=== PATIENT | female | born 1975 | race Caucasian/White ===

== ENCOUNTER 2019-08-29 19:02 | Emergency (ER) | payer MEDICAID, SELFPAY | END 2019-08-29 20:28 | disposition home or self-care (01) | PROVIDERS: Emergency Provider Emergency Medicine; Family Provider Family Medicine; Visit Provider Emergency Medicine | DX: S93.401A Sprain of unspecified ligament of right ankle, initial encounter (principal); X50.1XXA Overexertion from prolonged static or awkward postures, initial encounter; Y92.009 Unspecified place in unspecified non-institutional (private) residence as the place of occurrence of the external cause; J45.909 Unspecified asthma, uncomplicated; Z87.891 Personal history of nicotine dependence; Z88.2 Allergy status to sulfonamides; I10 Essential (primary) hypertension | CPT/HCPCS: 73610; 99283 ==

== ENCOUNTER → 2019-10-20 09:31 | Outpatient (BNVA) | payer MEDICAID, SELFPAY | PROVIDERS: Family Provider Family Medicine; PCP Nurse Practitioner Family; Visit Provider Anesthesiology | DX: G89.29 Other chronic pain (principal); M51.36 Other intervertebral disc degeneration, lumbar region; M54.16 Radiculopathy, lumbar region; M54.12 Radiculopathy, cervical region; M17.11 Unilateral primary osteoarthritis, right knee; Z79.891 Long term (current) use of opiate analgesic | CPT/HCPCS: 99214 ==

== ENCOUNTER → 2020-02-08 10:52 | Outpatient (BNVA) | payer MEDICAID, SELFPAY | PROVIDERS: Family Provider Family Medicine; PCP Nurse Practitioner Family; Visit Provider Anesthesiology | DX: G89.29 Other chronic pain (principal); M51.36 Other intervertebral disc degeneration, lumbar region; M54.16 Radiculopathy, lumbar region; M54.9 Dorsalgia, unspecified; M17.11 Unilateral primary osteoarthritis, right knee; M54.12 Radiculopathy, cervical region; Z79.891 Long term (current) use of opiate analgesic | CPT/HCPCS: 99214 ==

== ENCOUNTER → 2020-04-07 13:26 | Outpatient (BNVA) | payer MEDICAID, SELFPAY | PROVIDERS: Family Provider Family Medicine; PCP Nurse Practitioner Family; Visit Provider Anesthesiology | DX: G89.29 Other chronic pain (principal); M54.12 Radiculopathy, cervical region; M51.36 Other intervertebral disc degeneration, lumbar region; M54.16 Radiculopathy, lumbar region; M54.9 Dorsalgia, unspecified; Z79.891 Long term (current) use of opiate analgesic | CPT/HCPCS: 99214 ==

== ENCOUNTER → 2020-06-09 09:39 | Outpatient (BNVA) | payer MEDICAID, SELFPAY | PROVIDERS: Family Provider Family Medicine; PCP Nurse Practitioner Family; Visit Provider Anesthesiology | DX: G89.29 Other chronic pain (principal); M51.36 Other intervertebral disc degeneration, lumbar region; M54.16 Radiculopathy, lumbar region; M54.12 Radiculopathy, cervical region; M54.9 Dorsalgia, unspecified; Z79.1 Long term (current) use of non-steroidal anti-inflammatories (NSAID); Z79.891 Long term (current) use of opiate analgesic | CPT/HCPCS: 99213; 99214 ==

== ENCOUNTER 2020-06-09 12:17 | Outpatient (CLI) | payer MEDICAID, SELFPAY ==
[2020-06-09 12:57] LABS: Alanine Aminotransferase 18 U/L (0-33); Albumin Level 4.4 g/dL (3.5-5.2); Alkaline Phosphatase 90 IU/L (35-105); Anion Gap 15.5 (5-19); Aspartate Amino Transferase 17 U/L (0-32); Blood Urea Nitrogen 13 mg/dL (6-20); Calcium 9.6 mg/dL (8.5-10.5); Carbon Dioxide 29 mmol/L (22-29); Chloride 97 mmol/L (98-107); Globulin 3.6 g/dL (1.3-4.6); Glomerular Filtration Rate 60.5 mL/min (90-130); Glucose 110 mg/dL (65-115); Osmolality Calculated 287 mOsm/kg (285-295); Potassium 3.5 mmol/L (3.5-5.1); Sodium 138 mmol/L (136-145); Total Bilirubin 0.6 mg/dL (0.15-1.2)
== END 2020-06-09 12:18 | disposition home or self-care (01) ==
LOC: LAB 12:21
PROVIDERS: PCP Nurse Practitioner Family; Visit Provider Anesthesiology
DX: Z79.1 Long term (current) use of non-steroidal anti-inflammatories (NSAID) (principal)
CPT/HCPCS: 36415; 80053

== ENCOUNTER → 2020-08-02 13:22 | Outpatient (BNVA) | payer MEDICAID, SELFPAY | PROVIDERS: PCP Nurse Practitioner Family; Visit Provider Anesthesiology | DX: G89.29 Other chronic pain (principal); M51.36 Other intervertebral disc degeneration, lumbar region; M54.16 Radiculopathy, lumbar region; M54.9 Dorsalgia, unspecified; M54.12 Radiculopathy, cervical region; M17.11 Unilateral primary osteoarthritis, right knee; Z79.891 Long term (current) use of opiate analgesic | CPT/HCPCS: 99214 ==

== ENCOUNTER → 2020-10-06 12:41 | Outpatient (BNVA) | payer MEDICAID, SELFPAY | PROVIDERS: PCP Nurse Practitioner Family; Visit Provider Anesthesiology | DX: G89.29 Other chronic pain (principal); M51.36 Other intervertebral disc degeneration, lumbar region; M54.16 Radiculopathy, lumbar region; M54.9 Dorsalgia, unspecified; M54.2 Cervicalgia; Z79.891 Long term (current) use of opiate analgesic | CPT/HCPCS: 99213 ==

== ENCOUNTER → 2020-12-06 13:09 | Outpatient (BNVA) | payer MEDICAID, SELFPAY | PROVIDERS: PCP Nurse Practitioner Family; Visit Provider Nurse Practitioner | DX: G89.29 Other chronic pain (principal); M51.36 Other intervertebral disc degeneration, lumbar region; M54.16 Radiculopathy, lumbar region; M54.12 Radiculopathy, cervical region; M54.9 Dorsalgia, unspecified; M17.11 Unilateral primary osteoarthritis, right knee; M25.511 Pain in right shoulder; Z79.891 Long term (current) use of opiate analgesic | CPT/HCPCS: 99213 ==

== ENCOUNTER → 2021-02-06 12:42 | Outpatient (BNVA) | payer MEDICAID, SELFPAY | PROVIDERS: PCP Internal Medicine; Visit Provider Nurse Practitioner | DX: G89.29 Other chronic pain (principal); M51.36 Other intervertebral disc degeneration, lumbar region; M54.2 Cervicalgia; M25.512 Pain in left shoulder; M54.9 Dorsalgia, unspecified; M25.561 Pain in right knee; Z87.891 Personal history of nicotine dependence; Z79.891 Long term (current) use of opiate analgesic | CPT/HCPCS: 99213 ==

== ENCOUNTER → 2021-03-12 15:43 | Outpatient (BNVA) | payer MEDICAID, SELFPAY | PROVIDERS: PCP Internal Medicine; Visit Provider Registered Nurse Neonatal Intensive Care | DX: S99.912A Unspecified injury of left ankle, initial encounter (principal); X50.1XXA Overexertion from prolonged static or awkward postures, initial encounter | CPT/HCPCS: 73610 ==

== ENCOUNTER → 2021-04-06 12:09 | Outpatient (BNVA) | payer MEDICAID, SELFPAY | PROVIDERS: PCP Internal Medicine; Visit Provider Nurse Practitioner | DX: G89.29 Other chronic pain (principal); M25.512 Pain in left shoulder; M51.36 Other intervertebral disc degeneration, lumbar region; M54.16 Radiculopathy, lumbar region; M17.11 Unilateral primary osteoarthritis, right knee; M54.12 Radiculopathy, cervical region; E66.9 Obesity, unspecified; Z79.891 Long term (current) use of opiate analgesic | CPT/HCPCS: 99213 ==

== ENCOUNTER → 2021-06-07 12:58 | Outpatient (BNVA) | payer MEDICAID, SELFPAY | PROVIDERS: PCP Internal Medicine; Visit Provider Nurse Practitioner | DX: G89.29 Other chronic pain (principal); M51.36 Other intervertebral disc degeneration, lumbar region; M54.16 Radiculopathy, lumbar region; M17.11 Unilateral primary osteoarthritis, right knee; M54.12 Radiculopathy, cervical region; Z79.891 Long term (current) use of opiate analgesic | CPT/HCPCS: 99213; 99214 ==

== ENCOUNTER → 2021-08-28 12:24 | Outpatient (BNVA) | payer MEDICAID, SELFPAY | PROVIDERS: PCP Internal Medicine; Visit Provider Anesthesiology | DX: G89.29 Other chronic pain (principal); M51.36 Other intervertebral disc degeneration, lumbar region; M54.16 Radiculopathy, lumbar region; M54.2 Cervicalgia; Z79.891 Long term (current) use of opiate analgesic | CPT/HCPCS: 99214 ==

== ENCOUNTER 2023-03-25 13:51 | Outpatient (CLI) | payer MEDICAID, SELFPAY ==
--- NOTE | 2023-03-25 14:03 | MM_ITS ---
WS: [id number] BILATERAL 3D TOMOSYNTHESIS DIGITAL SCREENING MAMMOGRAPHY WITH CAD CLINICAL INFORMATION: SCREENING HISTORY: Screening mammogram. No current complaints. COMPARISON: 2019 TECHNIQUE: Bilateral CC and MLO views. FINDINGS: Scattered fibroglandular densities bilaterally. No suspicious focal mass, asymmetry, calcifications, or architectural distortion. No evidence of malignancy. Punctate and lucent centered calcifications. Stable previously described lobulated nodular parenchyma lower outer LEFT breast. Biopsy clip LEFT br east. MM/[place] [id number] IMPRESSION: BI-RADS: 2-Benign FOLLOW UP: 1 Year Follow-up Recommend return to annual screening mammography.
== END 2023-03-25 13:52 | disposition home or self-care (01) ==
LOC: RAD 13:53 → MOBLMAM 13:59 → RAD 14:01 → MOBLMAM 14:03
PROVIDERS: PCP Family Medicine; Visit Provider Family Medicine
DX: Z12.31 Encounter for screening mammogram for malignant neoplasm of breast (principal)
CPT/HCPCS: 77063; 77067

== ENCOUNTER → 2023-06-12 15:11 | Outpatient (BNVA) | payer MEDICAID, SELFPAY | PROVIDERS: PCP Family Medicine; Visit Provider Emergency Medicine | DX: R30.0 Dysuria (principal); N39.0 Urinary tract infection, site not specified; N30.00 Acute cystitis without hematuria | CPT/HCPCS: 81000; 87077; 87086; 87184 ==

== ENCOUNTER → 2024-04-14 16:54 | Outpatient (BNVA) | payer MEDICAID, SELFPAY | PROVIDERS: PCP Family Medicine; Visit Provider Nurse Practitioner | DX: N30.01 Acute cystitis with hematuria (principal) | CPT/HCPCS: 81000 ==

== ENCOUNTER 2024-04-15 11:24 | Emergency (ER) | payer MEDICAID, SELFPAY ==
[2024-04-15 11:29] VITALS: BP 162/97; PULSE 83; RESP 18; TEMP 36.8; O2SAT 95
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
[2024-04-15] MEDS: methocarbamol 750 mg Tablet 1500 MG PO (13:03)
[2024-04-15] MEDS: ketorolac 30 mg/mL INJ IM (13:03)
[2024-04-15 13:28] VITALS: PULSE 74; O2SAT 94
== END 2024-04-15 13:30 | disposition home or self-care (01) ==
PROVIDERS: Emergency Provider Emergency Medicine; PCP Family Medicine
DX: S13.4XXA Sprain of ligaments of cervical spine, initial encounter (principal); V89.2XXA Person injured in unspecified motor-vehicle accident, traffic, initial encounter; Z87.891 Personal history of nicotine dependence
CPT/HCPCS: 71045; 72040; 72072; 96372; 99284; J1885

== ENCOUNTER 2024-11-14 16:20 | Emergency (ER) | payer MEDICAID, SELFPAY ==
[2024-11-14 16:26] VITALS: BP 189/119; PULSE 85; RESP 16; TEMP 36.8; O2SAT 96; BMI 39.9
--- NOTE | 2024-11-14 16:43 | W.ED.FEMALGU ---
HPI - Female Genitourinary General: Chief complaint: Urogenital-Female Stated complaint: pain when urinating, lower back and abd pain Time Seen by Provider: 11/14/24 16:30 History of Present Illness: 49-year-old female with a history of obesity, chronic neck and back pain, who presents the emergency room with concern for urinary tract infection. She has difficulty urinating with low abdominal pain that goes into her back. Some dysuria. No fevers. No vomiting. No altered mental status. Related Data Home Medications ?Medication ?Instructions ?Recorded ?Confirmed chlorthalidone 25 mg tablet 25 mg PO DAILY 10/20/19 11/14/24 bupropion HCl 150 mg 24 hr tablet, 150 mg PO DAILY 06/12/23 11/14/24 extended release Previous Rx's ?Medication ?Instructions ?Recorded methocarbamol 750 mg tablet 750 mg PO Q6H PRN spasms #20 tabs 04/15/24 cefdinir 300 mg capsule 300 mg PO BID 7 days #14 caps 11/14/24 diclofenac sodium 50 mg 50 mg PO BID PRN pain #14 tabs 11/14/24 tablet,delayed release ondansetron 4 mg disintegrating 4 mg PO Q8H PRN nausea and 11/14/24 tablet vomiting #10 tabs phenazopyridine 100 mg tablet 100 mg PO Q8H 6 doses #6 tabs 11/14/24 (Pyridium) Allergies Allergy/AdvReac Type Severity Reaction Status Date / Time sulfacetamide Allergy Severe ALGY-Anaphy Verified 04/14/24 16:19 laxis clindamycin Allergy ALGY-Difficulty Verified 04/14/24 16:19 Breathing Review of Systems Narrative: Constitutional symptoms: Negative except as documented in HPI. Skin symptoms: Negative except as documented in HPI. Eye symptoms: Negative except as documented in HPI. ENMT symptoms: Negative except as documented in HPI. Respiratory symptoms: Negative except as documented in HPI. Cardiovascular symptoms: Negative except as documented in HPI. Gastrointestinal symptoms: Negative except as documented in HPI. Genitourinary symptoms: Negative except as documented in HPI. Musculoskeletal symptoms: Negative except as documented in HPI. Neurologic symptoms: Negative except as documented in HPI. Psychiatric symptoms: Negative except as documented in HPI. Endocrine symptoms: Negative except as documented in HPI. PFSH ED PFSH: Medical History Chronic neck and back pain Obesity DDD (degenerative disc disease), lumbar Arthritis of right knee Acute cervical radiculopathy Chronic radicular low back pain Encounter for long-term opiate analgesic use Encounter for long-term (current) use of NSAIDs Surgical History History of 3 sections History of bilateral tubal ligation S/P arthroscopy of right shoulder S/P left breast biopsy (~06/2019) Family History Other CAD (coronary artery disease) Cancer Diabetes Hypertension Obesity Social History Smoking and tobacco/nicotine status: unknown if used tobacco/nicotine Quit status (tobacco/nicotine): has quit using Year quit tobacco: 2016 Second hand smoke exposure: Yes Alcohol intake: current Alcohol intake frequency: holidays/special occasions only Alcohol type: beer and wine Substance/Drug Use: never Physical Exam Narrative: EXAM NARRATIVE: General: Alert, no acute distress. Skin: Warm, dry. Head: Normocephalic, atraumatic. Neck: Supple, trachea midline. Eye: Extraocular movements are intact. Ears, nose, mouth and throat: mucosa moist. Cardiovascular: Regular, Normal peripheral perfusion. Respiratory: Lungs are clear to auscultation, respirations are non-labored, breath sounds are equal, Symmetrical chest wall expansion. Gastrointestinal: Soft, Nontender, Non distended Musculoskeletal: Normal ROM, no deformity. Neurological: Alert and oriented, No focal neurological deficit observed. Psychiatric: Cooperative, appropriate mood & affect. Course Vital Signs: Vital signs: Vital Signs Temperature 98.3 F 11/14/24 16:26 Pulse Rate 85 11/14/24 18:30 Respiratory Rate 16 11/14/24 16:26 Blood Pressure 171/90 11/14/24 18:30 Pulse Oximetry 100 11/14/24 18:30 Oxygen Delivery Me thod Room Air 11/14/24 18:30 MDM - Female Medical Decision Making Medical decision making: Differential diagnosis including but not limited to and based on the above HPI, review of systems and physical exam: Differential diagnosis for patient with dysuria / lower abdominal pain: Ureterolithiasis. Urinary tract infection. Cystitis. With the possibility of sepsis, pyelonephritis and renal failure. Orders placed to evaluate differential diagnosis based on the above differential, HPI and physical exam Lab Review: Laboratory results were reviewed and interpreted by myself the emergency room physician. Mild leukocytosis. No anemia. Potassium is low at 2.7. This was replaced. Urine has hematuria and leukocytosis with 4+ bacteria. CT scan was ordered to evaluate for kidney stones. CT of the abdomen pelvis: Some stranding of the ureter which could indicate passed stone or urinary tract infection. She does have a stone in her kidney we discussed this. This was reviewed and interpreted by myself the emergency room physician. I also reviewed the radiology report. I reviewed the patient's medical record. Reexamination: Patient remained stable. No increased work of breathing. No altered mental status. No focal motor deficits. Patient says she feels much better. No longer having any pain or trouble urinating. Assessment and plan: Urinary tract infection Kidney stone ? Pyridium and Rocephin in the emergency room. ?40 mill equivalents potassium in the emergency room. - Discharged home - Discussed plan with patient. Answered any questions. - Evaluation and treatment of this problem were appropriate in the emergency setting. Lab Data 11/14/24 16:48 11/14/24 16:48 Radiology Impressions Abdomen/Pelvis CT 11/14/24 17:54 IMPRESSION: 1. Mild right periureteral fat stranding likely represents inflammation, possibly from a recently passed calculus. No urinary tract calculi are visualized on the right at this time. Superimposed infection not entirely excluded. 2. 3 mm nonobstructing left renal calculus. 3. 1.7 cm left adrenal nodule favors a benign adenoma. COMMENTS: Consistent with the [place] [employer]'s Incidental Findings Committee white paper (J Am Colton Radiol 2017): For any incidental adrenal lesion greater than or equal to 1 cm but less than or equal to 4 cm classified in this report as benign, likely benign, or containing fat (including classification as an adenoma or myelolipoma), no follow-up imaging is recommended per consensus recommendations based on imaging criteria. Further lab evaluation could be pursued if warranted based on clinical findings. Laboratory Results WBC 13.18 10^3/uL (3.29-11.43) H 11/14/24 16:48 RBC 5.29 10^6/uL (3.85-5.65) 11/14/24 16:48 Hgb 12.70 g/dL (11.27-16.99) 11/14/24 16:48 Hct 41.2 % (36-47) 11/14/24 16:48 MCV 77.9 fl (85-98) L 11/14/24 16:48 MCH 24.0 pg (27-33) L 11/14/24 16:48 MCHC 30.8 g/dL (30-55) 11/14/24 16:48 RDW 15.1 % (12.1-15.1) 11/14/24 16:48 Plt Count 378 10^3/cmm (157-399) 11/14/24 16:48 MPV 10.6 fL (7.4-10.4) H 11/14/24 16:48 Neut % (Auto) 70.6 % 11/14/24 16:48 Lymph % (Auto) 22.1 % 11/14/24 16:48 [place] % (Auto) 5.8 % 11/14/24 16:48 Eos % (Auto) 1.0 % 11/14/24 16:48 Baso % (Auto) 0.2 % 11/14/24 16:48 Neut # (Auto) 9.31 10^3/uL (1.8-7.7) H 11/14/24 16:48 Lymph # (Auto) 2.9 10^3/uL (0.8-4.8) 11/14/24 16:48 [place] # (Auto) 0.8 10^3/uL (0.2-0.9) 11/14/24 16:48 Eos # (Auto) 0.1 10^3/uL (0.0-0.8) 11/14/24 16:48 Baso # (Auto) 0.0 10^3/uL (0.0-0.1) 11/14/24 16:48 Nucleated RBC % (auto) 0 % 11/14/24 16:48 Nucleated RBCs # 0.0 /100WBC 11/14/24 16:48 Sodium 131 mmol/L (136-145) L 11/14/24 16:48 Potassium 2.7 mmol/L (3.5-5.1) L* 11/14/24 16:48 Chloride 88 mmol/L (98-107) L 11/14/24 16:48 Carbon Dioxide 31 mmol/L (22-29) H 11/14/24 16:48 Anion Gap 14.7 (5-19) 11/14/24 16:48 BUN 10 mg/dL (6-20) 11/14/24 16:48 Creatinine 0.7 mg/dL (0.5-0.9) 11/14/24 16:48 GFR Calculation 89.7 mL/min (90-130) L 11/14/24 16:48 Glucose 100 mg/dL (65-115) 11/14/24 16:48 Calculated Osmolality 271 mOsm/kg (285-295) L 11/14/24 16:48 Calcium 9.3 mg/dL (8.5-10.5) 11/14/24 16:48 Total Bilirubin 0.9 mg/dL (0.15-1.2) 11/14/24 16:48 AST 14 U/L (0-32) 11/14/24 16:48 ALT 19 U/L (0-33) 11/14/24 16:48 Alkaline Phosphatase 95 U/L (35-105) 11/14/24 16:48 Total Protein 8.1 g/dL (6.6-8.7) 11/14/24 16:48 Albumin 4.1 g/dL (3.5-5.2) 11/14/24 16:48 Globulin 4.0 g/dL (1.3-4.6) 11/14/24 16:48 Urine Color Dark yellow (Yellow) A 11/14/24 16:40 Urine Appearance Turbid (CLEAR) A 11/14/24 16:40 Urine pH 6.0 (5-7) 11/14/24 16:40 Ur Specific [place] 1.019 (1.005-1.030) 11/14/24 16:40 Urine Protein 3+ (Negative) A 11/14/24 16:40 Urine Glucose (UA) Negative (Normal) 11/14/24 16:40 Urine Ketones Negative (Negative) 11/14/24 16:40 Urine Blood 3+ (Negative) A 11/14/24 16:40 Urine Nitrate Positive (Negative) A 11/14/24 16:40 Urine Bilirubin 1+ (Negative) H 11/14/24 16:40 Urine Urobilinogen 1.0 mg/dL (Negative) 11/14/24 16:40 Ur Leukocyte Esterase 2+ (Negative) A 11/14/24 16:40 Urine RBC >100 /hpf (0-2) H 11/14/24 16:40 Urine WBC >100 /hpf (0-5) H 11/14/24 16:40 Ur Squamous Epith Cells 0-5 /hpf (0-5) 11/14/24 16:40 Amorphous Sediment Not Reportable 11/14/24 16:40 Urine Bacteria 1+ /hpf (NONE) H 11/14/24 16:40 Hyaline Casts 0.81 /lpf 11/14/24 16:40 All radiology interpretation(s) finalized by discharge Discharge Plan Discharge Patient Disposition: Home Clinical Impression: Urinary tract infection, Hypokalemia, Kidney stone Condition: Stable Prescriptions: New phenazopyridine [Pyridium] 100 mg tablet 100 mg PO Q8H Qty: 6 0RF diclofenac sodium 50 mg tablet,delayed release (DR/EC) 50 mg PO BID PRN (Reason: pain) Qty: 14 0RF ondansetron 4 mg tablet,disintegrating 4 mg PO Q8H PRN (Reason: nausea and vomiting) Qty: 10 0RF cefdinir 300 mg capsule 300 mg PO BID 7 Days Qty: 14 0RF No Action chlorthalidone 25 mg tablet 25 mg PO DAILY bupropion HCl 150 mg tablet extended release 24 hr 150 mg PO DAILY methocarbamol 750 mg tablet 750 mg PO Q6H PRN (Reason: spasms) Qty: 20 0RF Discharge Orders: Discharge ED (Routine); Ordered 11/14/24 Ordered By: Doreen Alvarado Referrals: Ingrid Dominguez DO [Primary Care Provider] - Discharge Diet: Usual diet Discharge Activity: Increase activity as tolerated Patient Instructions: Kidney Stones (ED), Urinary Tract Infection in Women (ED), Opioid Safety, Pain Management Activity Restrictions/Additional Instructions: Please follow-up with your primary provider in the next few days for repeat potassium levels. Thank you for choosing [facility] for your healthcare needs today. Please realize this is an emergency room and that we are providing you with a medical screening exam and this may not be complete and all inclusive of all the testing and or work up that you may need to determine your ailment or severity of your illness. You have been screened and evaluated and felt safe for discharge. Health conditions do change or evolve sometimes and as such it is important that you follow up with your Primary Doctor to be re checked, 3-5 days is a general good time frame for follow up. You are always welcome to return to the ED for re assessment if your symptoms are worsening or you have new concerns Print Language: Slovak Coding Level of Care Code ED Power Saw Operator for Antonino Post
[2024-11-14 16:48] LABS: Bilirubin Urine 1+ (Negative); Blood Urine 3+ (Negative); Glucose Urine UA Negative (Normal); Ketones Urine Negative (Negative); Leukocyte Esterase Urine 2+ (Negative); Nitrate Urine Positive (Negative); Protein Urine 3+ (Negative); Specific Gravity, Urine 1.019 (1.005-1.030); Urine Appearance Turbid (CLEAR); Urine Color Dark Yellow (Yellow)
[2024-11-14 16:53] LABS: Bacteria Urine 1+ /hpf; Hyaline Casts Urine 0.81 /lpf; RBC Urine >100 /hpf (0-2); Squamous Epithelial Cell Urine 0-5 /hpf (0-5); WBC Urine >100 /hpf (0-5)
[2024-11-14 16:55] LABS: Basophils % 0.2 %; Eosinophils # 0.1 10^3/uL (0.0-0.8); Hematocrit 41.2 % (36-47); Lymphocytes # 2.9 10^3/uL (0.8-4.8); Lymphocytes % 22.1 %; Mean Corpuscular HGB Conc 30.8 g/dL (30-55); Mean Corpuscular Volume 77.9 fl (85-98); Mean Platelet Volume 10.6 fL (7.4-10.4); Monocytes # 0.8 10^3/uL (0.2-0.9); Monocytes % 5.8 %; Neutrophils # 9.31 10^3/uL (1.8-7.7); Neutrophils % 70.6 %; Nucleated Red Blood Cells % 0 %; Platelet Count 378 10^3/cmm (157-399); Red Blood Count 5.29 10^6/uL (3.85-5.65); Red Cell Distribution Width 15.1 % (12.1-15.1); White Blood Count 13.18 10^3/uL (3.29-11.43)
[2024-11-14 16:56] LABS: Add Urine Culture? Yes
[2024-11-14 17:00] VITALS: BP 163/93; PULSE 83; O2SAT 99
[2024-11-14 17:12] LABS: Alanine Aminotransferase 19 U/L (0-33); Albumin Level 4.1 g/dL (3.5-5.2); Alkaline Phosphatase 95 U/L (35-105); Anion Gap 14.7 (5-19); Aspartate Amino Transferase 14 U/L (0-32); Blood Urea Nitrogen 10 mg/dL (6-20); Calcium 9.3 mg/dL (8.5-10.5); Carbon Dioxide 31 mmol/L (22-29); Chloride 88 mmol/L (98-107); Creatinine Clr Calc Pharmacy 130.5366; Glomerular Filtration Rate 89.7 mL/min (90-130); Glucose 100 mg/dL (65-115); Osmolality Calculated 271 mOsm/kg (285-295); Sodium 131 mmol/L (136-145); Total Bilirubin 0.9 mg/dL (0.15-1.2); Total Protein 8.1 g/dL (6.6-8.7)
[2024-11-14 17:13] LABS: Potassium 2.7 mmol/L (3.5-5.1)
[2024-11-14] MEDS: phenazopyridine 100 mg Tablet 200 MG PO (17:14)
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
[2024-11-14] MEDS: cefTRIAXone 1,000 MG in water for injection-sterile 2.1 ML 999 MG IM (18:11)
[2024-11-14] MEDS: potassium chloride oral liq 20 mEq/15 mL UDC 40 MEQ PO (18:12)
[2024-11-14 18:30] VITALS: BP 171/90; PULSE 85; O2SAT 100
[2024-11-14 19:48] VITALS: BP 175/108; PULSE 86; RESP 16; O2SAT 98
== END 2024-11-14 19:49 | disposition home or self-care (01) ==
PROVIDERS: Emergency Provider Emergency Medicine; PCP Family Medicine
DX: N39.0 Urinary tract infection, site not specified (principal); E87.6 Hypokalemia; N20.0 Calculus of kidney; Z87.891 Personal history of nicotine dependence
CPT/HCPCS: 36415; 74176; 80053; 81001; 85025; 87077; 87086; 87186; 96372; 99284; J0696; J9999